=== PATIENT | female | born 1980 | race Native Hawaiian/Other Pacific Islander ===

== ENCOUNTER 2022-04-11 14:32 | Outpatient (CLI) | payer BC | END 2022-04-11 19:45 | disposition home or self-care (01) | LOC: RAD 14:32 | PROVIDERS: ATTEND Nurse Practitioner Family | DX: R07.81 Pleurodynia (principal) ==

== ENCOUNTER 2022-04-22 09:42 | Outpatient (CLI) | payer BC | END 2022-04-22 18:55 | disposition home or self-care (01) | LOC: CT 09:42 | PROVIDERS: ATTEND Nurse Practitioner Family | DX: J92.9 Pleural plaque without asbestos (principal) ==

== ENCOUNTER 2022-05-31 13:38 | Outpatient (CLI) | payer BC ==
[2022-05-31 14:37] LABS: PLATELET COUNT 264 K/uL (152-353)
== END 2022-05-31 19:33 | disposition home or self-care (01) ==
LOC: LABW 13:38
PROVIDERS: ATTEND Nurse Practitioner Family
DX: E87.1 Hypo-osmolality and hyponatremia (principal); D56.1 Beta thalassemia
CPT/HCPCS: 36415; 80053; 82728; 83540; 83550; 85027

== ENCOUNTER 2022-06-06 09:51 | Outpatient (CLI) | payer BC | END 2022-06-06 21:45 | disposition home or self-care (01) | LOC: LABW 09:51 | PROVIDERS: ATTEND Internal Medicine Pulmonary Disease | DX: R06.09 Other forms of dyspnea (principal); R91.1 Solitary pulmonary nodule; J43.2 Centrilobular emphysema; F17.210 Nicotine dependence, cigarettes, uncomplicated | CPT/HCPCS: 36415; 82103; 86480 ==